=== PATIENT | male | born 1990 | race Caucasian/White ===

== ENCOUNTER 2017-06-28 04:29 | Inpatient (IN) ==
[2017-06-28] MEDS ORDERED: Naloxone 0.4 MG/ML INJ IVP PRN ×2 (06:31→07:50)
[2017-06-28] MEDS ORDERED: Ringers Solution, Lactated 1,000 ML IVC SCH (06:45)
--- NOTE | 2017-06-28 07:38 | Orthopedic Consult Note ---
Date of Encounter: 06/28/17 Time of Encounter: 07:33 Assessment and Plan (1) Finger infection Current Visit: Yes Status: Acute I did discuss the diagnosis in detail with the patient. From an orthopedic standpoint he has a right ring finger infection which could be an infection of the subcutaneous tissues versus a deeper flexor tenosynovitis. He also has a subcutaneous abscess localized to the right ulnar and volar forearm. My recommendation was for exploration and drainage of both areas which he is agreeable to. My recommendation is to proceed under local anesthetic and I feel that these can be performed at the bedside. We will plan on this for later today. We will keep the patient NPO however in case he requires a more involved operative debridement under a general anesthetic. In the mean time I recommend elevation. Regarding the posterior head lesion, I defer management to the primary team, though the lesion does not appear to require any debridement at this time. History of Present Illness HPI: Mr. Loo is a 26 year old male intravenous drug user transferred here from [facility]. He is currently admitted to the hospitalist. He was transferred late last night/early this morning due to a ring finger infection on the right. There is also concern for an ipsilateral forearm abscess and an abscess on the back. On my evaluation the patient is complaining of mild pain localized to the right ring finger that has been present for the last 3 days. He does feel that a thorn punctured the right ring finger and led to the abscess. He denies any injections in the right ring finger. He does have a small abscess along the ulnar aspect of the distal right forearm which he is not clear about the cause and denies any injections in this area. He denies any feelings of illness. He denies any other infections. He denies any numbness, tingling, or any other associated signs or symptoms he denies any modifying factors. Past Med Surg Social Fam HX - Past Medical History Medical history: asthma Psychiatric history: ADHD, bipolar - Past Surgical History Surgical History: no surgical history - Social History Smoking Status: Current every day smoker Packs per day: 1 Smokeless Tobacco Status: No Alcohol use: none Drug use: methamphetamine, IV Drug Use - Family History Mother Living Status: Still Living Hx Family Cardiac Disorders: Yes (htn) Medications and Allergies No Known Home Drugs 06/28/17 [History] 3 Allergy/AdvReac Type Severity Reaction Status Date / Time prednisone Allergy Hives Verified 06/28/17 06:44 All Systems Reviewed: Constitutional and musculoskeletal systems were reviewed and are negative unless otherwise stated in history of present illness. Physical Exam - Constitutional Exam: CONSTITUTIONAL -Vitals reviewed: Afebrile and vitals are stable. -The patient is well developed, well nourished, well groomed PSYCHIATRIC -Fully alert and oriented -Pleasant mood HEAD -There is a scabbed over lesion measuring about a centimeter in diameter over the posterior head region. Minimal tenderness and erythema. No fluctuance. Minimal induration. RIGHT UPPER EXTREMITY Inspection of the ring finger shows focal swelling to the proximal aspect over the P1 area. Mild tenderness to palpation and erythema in this region with a small area of drainage over the volar PIP joint. There is mild erythema along the ulnar aspect of the digit and the P1 area as well. No dorsal tenderness. No other tenderness noted about the hand. There is a small, 1-1/2 cm palpable subcutaneous abscess localized to the volar and ulnar aspect of the right distal forearm with minimal fluctuance. Full active and passive motion of the shoulder, elbow, and wrist he can grossly flex and extend the digits of the hand , including the ring finger with minimal discomfort though there is some limitation to motion related to the swelling. The patient can actively flex and extend all digits, extend the thumb, cross the index and long fingers, make an okay sign, and oppose the thumb. The fingertips are all grossly sensate and well-perfused, and the radial artery pulse is 2+. Diagnostic Imaging: X-rays of the right hand and forearm are pending Results - Labs Labs: WBC from [facility] is 13.2. All other labs normal. Consult Discharge Plan - Plan Referrals: NONE,PCP [Primary Care Provider] -
[2017-06-28 07:44] LABS: BUN/Creatinine Ratio 9 (6-26); Blood Urea Nitrogen 7 mg/dL (8-26); eGFR For African Americans > 60 (> 60); eGFR For Non-African Americans > 60 (> 60)
[2017-06-28] MEDS ORDERED: Ondansetron 4 MG/2 ML VIAL IVP PRN (07:50)
[2017-06-28] MEDS ORDERED: Acetaminophen 325 MG TABLET PO PRN (07:50)
[2017-06-28] MEDS ORDERED: Ibuprofen 400 MG TABLET PO PRN (07:50)
[2017-06-28] MEDS ORDERED: Vancomycin (wt based) 1,000 MG VIAL IVPB SCH (08:00)
--- NOTE | 2017-06-28 08:03 | Internal Med History&Physical ---
Date of Encounter: 06/28/17 Time of Encounter: 07:58 Assessment and Plan (1) Sepsis affecting skin Current visit: Yes Status: Acute Heart rate of 115 and white blood cell count of 13.2 Sepsis secondary to multiple abscesses, right forearm and right fourth finger Order cultures, continue IV vancomycin Nothing by mouth for possible surgical draining by Dr. Ingram IV fluids and Toradol for pain There is a possible early abscess in the occipital area, consider surgery consult if not improving, consider CT scan if worsening Omeprazole for GI prophylaxis and Lovenox for DVT prophylaxis. Patient will be admitted as inpatient, full code. Time spent on this admission 40 minutes. (2) Abscess Current visit: Yes Status: Acute Possible tooth abscess. Start Unasyn and follow up with a dentist as an outpatient, consider imaging (3) Tobacco abuse Current visit: Yes Status: Acute Smoking cessation counseling given for 5 minutes. Nicotine patch (4) IV drug abuse Current visit: Yes Status: Acute (5) Bipolar 1 disorder Current visit: Yes Status: Acute Internal Medicine - H&P: HPI Chief complaint: hand abscess Admitted From: Emergency Dept ([facility]) History of present illness: Mr. Loo is a 26 year old male with a PMHX of IVDA using methamphetamines, tobacco abuse, bipolar, ADHD, who was transferred form [facility] ER where he went complaining of more than 4 days of right forearm and pain over the 4th finger in the right hand. ER contacted Dr Gillis who accepeted the patient to be transferred. At [facility] he received 1 dose of IV vancomycin. No imaging was performed. Patient was evaluated by Dr. Ingram most likely will perform surgical draining of both areas. The patient had a heart rate of 115 and a white blood cell count of 13.2. Lactic acid was normal. He describes the pain as 7 out of 10 in intensity. He is somnolent and not very cooperative with the examination and history. Complains of a headache and some nausea. Also, he has been having toothaches and mentions that he has had a possible tooth abscess. Denies any major fevers, chest pain, shortness of breath. Denies injecting IV drugs in the affected areas. Has also had small abscess in the occipital area and not draining. Denies any other complaint. Past Med Surg Social Fam HX - Past Medical History Medical history: asthma, other (IV drug abuse with methamphetamines, according to [facility] note he has used marijuana in the past, history of tobacco abuse, bipolar disorder, ADHD) Psychiatric history: ADHD, bipolar - Past Surgical History Surgical History: no surgical history - Social History Smoking Status: Current every day smoker Packs per day: 1 Smokeless Tobacco Status: No Alcohol use: none Drug use: marijuana, methamphetamine, IV Drug Use - Family History Mother Living Status: Still Living Hx Family Cardiac Disorders: Yes (htn) - Additional Family History Additional family history: Mother with hypertension Internal Medicine - H&P: Meds No Known Home Drugs 06/28/17 [History] 3 Allergy/AdvReac Type Severity Reaction Status Date / Time prednisone Allergy Hives Verified 06/28/17 06:44 All Systems PM: A 10-system review of systems was performed and is negative for pertinent findings except as documented above in the HPI. Review of systems: no chest pain or SOB. other systems out of the ten reviewed are negative - Constitutional Vitals: Temp Pulse Resp BP Pulse Ox 97.5 F L 71 16 131/88 97 06/28/17 07:45 06/28/17 07:45 06/28/17 07:45 06/28/17 07:45 06/28/17 07:45 General appearance: Present: A&O X 3 - Head Head exam: Present: atraumatic, normocephalic - Eye Eye exam: Present: PERRL, conjuntiva pink, sclera anicteric Pupils: Present: PERRL - Neck Neck exam general surgery: Present: supple, trachea midline. Absent: lymphadenopathy - Respiratory Respiratory exam: Present: CTAB. Absent: accessory muscle use, rales, rhonchi, wheezes - Cardiovascular Cardiovascular exam: Present: RRR, +S1, +S2. Absent: diastolic murmur, gallop, rubs, systolic murmur - GI/Abdominal GI/Abdominal exam: Present: normal bowel sounds, soft, no peritoneal signs. Absent: distended, tenderness - Extremities Exam Extremities exam: Present: warm, radial pulses palpable and symmetrical. Absent : calf tenderness, cyanotic, pedal edema - Neurological Exam Neurological exam: Present: CN II-XII intact, oriented X3, no focal deficits. Absent: pronater drift, facial droop, speech deficit - Skin Skin exam: Present: dry. Absent: intact Additional comments: Large draining abscess over the internal area of the right fourth finger, right forearm abscess, erythematous and tender to touch Right mandibular gum inflamation. 1 cm induration in the occipital area Internal Med - H&P Results - Labs CBC & Chem 7: 06/28/17 07:22 Labs: BMP 06/28/17 07:22 BUN 7 L Creatinine 0.75 White blood cell count 13.2 hemoglobin 14.7 and platelets 308 sodium 139 potassium 4 chloride 100 CO2 33 BUN 7 creatinine 0.85 glucose 78 pro-calcitonin 0.06 No imaging studies performed
[2017-06-28] MEDS: Nicotine 21 MG PATCH.TD24 TD SCH (09:34)
[2017-06-28] MEDS: Ampicillin/Sulbactam 1,500 MG in 0.9 % Sodium Chloride Mini Bag 100 ML IVPB SCH ×2 (11:10→17:16)
[2017-06-28] MEDS ORDERED: Lidocaine/EPI 1:100k 1% 50 ML VIAL INFILT ONE (12:10)
[2017-06-28] MEDS ORDERED: Vancomycin 0 MG in D5% in Water 250 ML IVPB SCH (15:00)
[2017-06-28] MEDS: Ringers Solution, Lactated 1,000 ML IVC SCH (15:29)
[2017-06-28] MEDS: Ketorolac 30 MG/ML VIAL IVP PRN (17:19)
[2017-06-28] MEDS: Vancomycin 1,250 MG in D5% in Water 250 ML IVPB SCH (19:40)
[2017-06-29] MEDS: Ampicillin/Sulbactam 1,500 MG in 0.9 % Sodium Chloride Mini Bag 100 ML IVPB SCH ×4 (00:04→17:30)
[2017-06-29] MEDS: Ketorolac 30 MG/ML VIAL IVP PRN ×3 (00:11→19:09)
[2017-06-29 05:28] LABS: Basophils # 0.1 K/mcL (0.0-0.2); Basophils % 0.8 %; Eosinophils # 0.9 K/mcL (0.0-0.6); Eosinophils % 8.9 %; Hemoglobin 15.1 g/dL (12.9-16.9); Immature Granulocytes % 0.5 % (0-4); Lymphocytes # 3.8 K/mcL (0.6-4.6); Lymphocytes % 37.8 %; Mean Corpuscular HGB Conc 32.1 g/dL (31.6-35.5); Mean Corpuscular Hemoglobin 27.2 pg (28.0-33.3); Mean Corpuscular Volume 84.7 fL (83.0-100.0); Mean Platelet Volume 10.5 fL (9.4-12.4); Monocytes # 0.7 K/mcL (0.0-1.3); Monocytes % 6.9 %; Neutrophils # 4.5 K/mcL (1.6-8.9); Platelet Count 286 K/mcL (140-400); Red Blood Count 5.55 M/mcL (4.19-5.50); Red Cell Distribution Width 12.5 % (11.5-14.5); Segmented Neutrophils % 45.1 %
[2017-06-29] MEDS: *HR* Enoxaparin 40 MG/0.4 ML SYRINGE SQ SCH (05:31)
[2017-06-29 05:47] LABS: BUN/Creatinine Ratio 11 (6-26); Blood Urea Nitrogen 9 mg/dL (8-26); Calcium 9.6 mg/dL (8.6-10.8); Carbon Dioxide 28 mEq/L (19-29); Chloride 105 mEq/L (98-109); Glucose 97 mg/dL (70-99); Osmolality,Calculated 289 (280-300); Potassium 4.3 mEq/L (3.5-4.5); Sodium 140 mEq/L (136-145); eGFR For African Americans > 60 (> 60); eGFR For Non-African Americans > 60 (> 60)
[2017-06-29] MEDS: Vancomycin 1,250 MG in D5% in Water 250 ML IVPB SCH (06:28)
[2017-06-29] MEDS: Ringers Solution, Lactated 1,000 ML IVC SCH ×3 (06:29→15:33)
--- NOTE | 2017-06-29 08:20 | Internal Med Progress Note ---
Date of Encounter: 06/29/17 Time of Encounter: 08:10 - Assessment and plan (1) Sepsis affecting skin Current Visit: Yes Status: Acute Assessment and plan: Heart rate of 115 and white blood cell count of 13.2 Sepsis secondary to multiple abscesses, right forearm and right fourth finger status post I&D by Dr. Ingram Recommendations appreciated Order cultures, continue IV vancomycin day 2 Nothing by mouth for possible new surgical draining IV fluids and Toradol for pain There is a possible early abscess in the occipital area, consider surgery consult if not improving, consider CT scan if worsening (2) Abscess Current Visit: Yes Status: Acute Assessment and plan: Possible tooth abscess. Continue Unasyn day 2 and follow up with a dentist as an outpatient (3) Tobacco abuse Current Visit: Yes Status: Acute Assessment and plan: Nicotine patch (4) IV drug abuse Current Visit: Yes Status: Acute (5) Bipolar 1 disorder Current Visit: Yes Status: Acute - Subjective Interval history: has less pain on his right forearm and right 4th finger, no fever, denies chest pain or shortness of breath, small abscess in the occipital area has improved, no abdominal pain or dysuria - Constitutional Vitals: Temp Pulse Resp BP Pulse Ox 98.1 F 76 14 152/82 98 06/29/17 07:12 06/29/17 07:12 06/29/17 07:12 06/29/17 07:12 06/29/17 07:12 General appearance: Present: A&O X 3 Exam: - Head Head exam: Present: atraumatic, normocephalic - Eye Eye exam: Present: PERRL, conjuntiva pink, sclera anicteric Pupils: Present: PERRL - Neck Neck exam general surgery: Present: supple, trachea midline. Absent: lymphadenopathy - Respiratory Respiratory exam: Present: CTAB. Absent: accessory muscle use, rales, rhonchi, wheezes - Cardiovascular Cardiovascular exam: Present: RRR, +S1, +S2. Absent: diastolic murmur, gallop, rubs, systolic murmur - GI/Abdominal GI/Abdominal exam: Present: normal bowel sounds, soft, no peritoneal signs. Absent: distended, tenderness - Extremities Exam Extremities exam: Present: warm, radial pulses palpable and symmetrical. Absent : calf tenderness, cyanotic, pedal edema - Neurological Exam Neurological exam: Present: CN II-XII intact, oriented X3, no focal deficits. Absent: pronater drift, facial droop, speech deficit - Skin Skin exam: Present: dry. Absent: intact Additional comments: Large draining abscess over the internal area of the right fourth finger, right forearm abscess covered by dressing Right mandibular gum inflamation. 1 cm induration in the occipital area improving Internal Medicine: Result - Labs CBC & Chem 7: 06/29/17 05:21 06/29/17 05:21 Labs: Short CBC 06/29/17 Range/Units 05:21 WBC 9.9 (4.3-11.1) K/mcL Hgb 15.1 (12.9-16.9) g/dL Hct 47.0 (37.5-50.1) % Plt Count 286 (140-400) K/mcL Neutrophils # 4.5 (1.6-8.9) K/mcL BMP 06/29/17 05:21 Sodium 140 Potassium 4.3 Chloride 105 Carbon Dioxide 28 BUN 9 Creatinine 0.83 Glucose 97 Calcium 9.6 - Impressions Impressions Finger X-Ray 06/28/17 07:31 IMPRESSION: 1. Subcutaneous soft tissue edema of the ring finger without radiographic findings of osteomyelitis, however, MRI is more sensitive in detection of osteomyelitis as clinically indicated. Subchondral lucency of the 3rd metacarpal head may represent an osteochondral lesion, this could be better evaluated by MRI on a nonemergent basis as clinically indicated. D/ / 06/28/2017 08:52:38 Weston Henry MD / Karissa Ames Interpreting Provider: Weston Henry MD Forearm X-Ray 06/28/17 07:32 IMPRESSION: 1. No acute osseous abnormality identified of the right elbow. 2. Mild swelling without evidence of soft tissue emphysema. D/ / Logan Sims MD / Logan Sims MD Interpreting Provider: Logan Sims MD Consult Discharge Plan - Plan Referrals: NONE,PCP [Primary Care Provider] -
--- NOTE | 2017-06-29 11:24 | Orthopedics Progress Note ---
Date of Encounter: 06/29/17 Time of Encounter: 11:16 - Assessment and Plan (1) Finger infection Current Visit: Yes Status: Acute Subjective Interval history: S: Resting comfortably in bed. Patient notes improvement to the right ring finger and right distal forearm region. No new complaints. No numbness, tingling, or any other associated signs or symptoms. O: Afebrile and the vital signs are stable. Right forearm redness is improving and the packing is pulled without any purulent drainage. Inspection of the ring finger shows improvement of the redness. Moderate swelling over the P1 area. The packing is pulled without any significant drainage. The wound is irrigated and repacked lightly. Expected tenderness over the ring finger and distal forearm. He could grossly flex and extend the digits with motion limited due to swelling. The fingertips are all grossly sensate and well-perfused, and the radial artery pulse is 2+. Cultures from yesterday are pending A: Right ring finger and distal forearm abscess post bedside I&D and improving with broad-spectrum IV antibiotics P: Continue IV antibiotics per the primary team. Daily dressing and packing changes Motion exercises to reduce the risk of stiffness I will follow clinically with you No plans for surgical drainage at this point. Objective Vital signs: Vital Signs Temp Pulse Resp BP Pulse Ox 06/29/17 07:12 98.1 F 76 14 152/82 98 06/29/17 03:35 97.6 F 64 14 154/95 97 06/29/17 00:15 98.4 F 78 15 167/90 97 06/28/17 19:45 97.7 F 84 16 136/94 97 06/28/17 15:23 98 F 73 16 135/85 99 Intake and Output 06/28/17 06/29/17 06/29/17 23:59 07:59 15:59 Intake Total 1250 / 1250 450 / 450 Balance 1250 / 1250 450 / 450 Intake: IV Fluids 1100 / 1100 450 / 450 Lactated Ringers 1,000 ML @ 150 1000 / 1000 mls/hr IVC .[id number] MELANIE Rx#: [id number] Unasyn 1,500 mg In 0.9 % Sodium 100 / 100 200 / 200 Chloride (Mini-Bag +) 100 ML @ 200 mls/hr IVPB Q6HR MELANIE Rx#: [id number] Vancocin 1,250 MG In Dextrose 5 250 / 250 % 250 ML @ 166.67 mls/hr IVPB Q12H MELANIE Rx#:[id number] Oral 150 / 150 0 / 0 Other: Meal NPO # Voids 1 2 Weight 87.6 kg Blood Glucose* 121 Patient Weight 06/29/17 23:59 Weight 87.6 kg - Labs CBC & BMP: 06/29/17 05:21 06/29/17 05:21 Labs: Abnormal lab results RBC 5.55 M/mcL (4.19-5.50) H 06/29/17 05:21 MCH 27.2 pg (28.0-33.3) L 06/29/17 05:21 Eosinophils # 0.9 K/mcL (0.0-0.6) H 06/29/17 05:21 POC Glucose 121 (58-89) H 06/29/17 05:29 Consult Discharge Plan - Plan Referrals: NONE,PCP [Primary Care Provider] -
[2017-06-29] MEDS: Nicotine 21 MG PATCH.TD24 TD SCH (12:15)
[2017-06-29] MEDS: *HR* Morphine 2 MG/ML SYRINGE IVP PRN (17:30)
[2017-06-29] MEDS: Vancomycin 1,500 MG in D5% in Water 250 ML IVPB SCH (20:31)
[2017-06-30] MEDS: Ampicillin/Sulbactam 1,500 MG in 0.9 % Sodium Chloride Mini Bag 100 ML IVPB SCH ×4 (00:51→18:14)
[2017-06-30] MEDS: Ringers Solution, Lactated 1,000 ML IVC SCH ×2 (00:52→11:56)
[2017-06-30] MEDS: *HR* Enoxaparin 40 MG/0.4 ML SYRINGE SQ SCH ×2 (05:02→05:14)
[2017-06-30] MEDS: Ketorolac 30 MG/ML VIAL IVP PRN ×2 (05:02→20:19)
--- NOTE | 2017-06-30 08:29 | Orthopedics Progress Note ---
Date of Encounter: 06/30/17 Time of Encounter: 08:26 - Assessment and Plan (1) Finger infection Current Visit: Yes Status: Acute I did discuss the diagnosis in detail with the patient. From an orthopedic standpoint he has a right ring finger infection which could be an infection of the subcutaneous tissues versus a deeper flexor tenosynovitis. He also has a subcutaneous abscess localized to the right ulnar and volar forearm. My recommendation was for exploration and drainage of both areas which he is agreeable to. My recommendation is to proceed under local anesthetic and I feel that these can be performed at the bedside. We will plan on this for later today. We will keep the patient NPO however in case he requires a more involved operative debridement under a general anesthetic. In the mean time I recommend elevation. Regarding the posterior head lesion, I defer management to the primary team, though the lesion does not appear to require any debridement at this time. Subjective Interval history: S: Expected pain to the right ring finger which has improved. No new complaints. O: Afebrile and the vital signs are stable. The ring finger continues to improve with mild erythema at this point localized mainly on the volar side of the digit. Mild tenderness to palpation as expected over the I&D site which looks good. No grossly purulent drainage. The packing is changed and the wound base irrigated with peroxide. He could grossly flex and extend the ring finger with some limitation due to moderate swelling and pain inhibition. The patient can actively flex and extend all digits, extend the thumb, cross the index and long fingers, make an okay sign, and oppose the thumb. The fingertips are all grossly sensate and well-perfused , and the radial artery pulse is 2+. The ulnar aspect of the distal forearm continues to heal nicely without any purulent drainage. A new dressing was placed. Cultures growing Staphylococcus aureus A: Right ring finger and distal forearm abscess post bedside I&D and improving with broad-spectrum IV antibiotics P: Continue IV antibiotics per the primary team. Recommend at least 1 more day of IV antibiotics followed by at least 1 day of observation on oral antibiotics to make sure he continues to improve. Daily dressing and packing changes Motion exercises to reduce the risk of stiffness I will follow clinically with you Objective Vital signs: Vital Signs Temp Pulse Resp BP Pulse Ox 06/30/17 07:24 97.7 F 59 14 153/81 97 06/30/17 04:15 98.7 F 88 15 151/88 97 06/29/17 23:22 98.1 F 88 16 154/97 95 06/29/17 18:41 98.0 F 65 17 171/122 97 06/29/17 15:19 98.2 F 81 16 143/94 98 06/29/17 11:25 97.7 F 92 16 157/98 99 Intake and Output 06/29/17 06/30/17 06/30/17 23:59 07:59 15:59 Intake Total 1440 / 1440 100 / 100 Output Total 250 / 250 Balance 1190 / 1190 100 / 100 Intake: IV Fluids 1200 / 1200 100 / 100 Lactated Ringers 1,000 ML @ 150 1000 / 1000 mls/hr IVC .Q6H40M MELANIE Rx#: [id number] Unasyn 1,500 mg In 0.9 % Sodium 200 / 200 100 / 100 Chloride (Mini-Bag +) 100 ML @ 200 mls/hr IVPB Q6HR MELANIE Rx#: [id number] Oral 240 / 240 Output: Urine 250 / 250 Other: Meal Dinner Percent of Meal Consumed 90% - Labs CBC & BMP: 06/29/17 05:21 06/29/17 05:21 Labs: Abnormal lab results RBC 5.55 M/mcL (4.19-5.50) H 06/29/17 05:21 MCH 27.2 pg (28.0-33.3) L 06/29/17 05:21 Eosinophils # 0.9 K/mcL (0.0-0.6) H 06/29/17 05:21 POC Glucose 121 (58-89) H 06/29/17 05:29 Vancomycin Trough 6.4 mcg/mL (10-20) L 06/29/17 18:28 Consult Discharge Plan - Plan Referrals: NONE,PCP [Primary Care Provider] -
--- NOTE | 2017-06-30 08:52 | Internal Med Progress Note ---
Date of Encounter: 06/30/17 Time of Encounter: 08:50 - Assessment and plan (1) Sepsis affecting skin Current Visit: Yes Status: Acute Assessment and plan: Heart rate of 115 and white blood cell count of 13.2 Likely incefted with MRSA, sensitivity pending Sepsis secondary to multiple abscesses, right forearm and right fourth finger status post I&D by Dr. Ingram Recommendations appreciated Order cultures, continue IV vancomycin day 3 IV fluids and Toradol for pain There is a possible early abscess in the occipital area, consider surgery consult if not improving, consider CT scan if worsening (2) Abscess Current Visit: Yes Status: Acute Assessment and plan: Possible tooth abscess. Continue Unasyn day 3 and follow up with a dentist as an outpatient (3) Tobacco abuse Current Visit: Yes Status: Acute Assessment and plan: Nicotine patch (4) IV drug abuse Current Visit: Yes Status: Acute (5) Bipolar 1 disorder Current Visit: Yes Status: Acute - Subjective Interval history: Mentions thath he has less pain on his right forearm and right 4th finger, no fever, denies chest pain or shortness of breath, small abscess in the occipital area has improved, no abdominal pain or dysuria - Constitutional Vitals: Temp Pulse Resp BP Pulse Ox 97.7 F 59 14 153/81 97 06/30/17 07:24 06/30/17 07:24 06/30/17 07:24 06/30/17 07:24 06/30/17 07:24 General appearance: Present: A&O X 3 Exam: - Head Head exam: Present: atraumatic, normocephalic - Eye Eye exam: Present: PERRL, conjuntiva pink, sclera anicteric Pupils: Present: PERRL - Neck Neck exam general surgery: Present: supple, trachea midline. Absent: lymphadenopathy - Respiratory Respiratory exam: Present: CTAB. Absent: accessory muscle use, rales, rhonchi, wheezes - Cardiovascular Cardiovascular exam: Present: RRR, +S1, +S2. Absent: diastolic murmur, gallop, rubs, systolic murmur - GI/Abdominal GI/Abdominal exam: Present: normal bowel sounds, soft, no peritoneal signs. Absent: distended, tenderness - Extremities Exam Extremities exam: Present: warm, radial pulses palpable and symmetrical. Absent : calf tenderness, cyanotic, pedal edema - Neurological Exam Neurological exam: Present: CN II-XII intact, oriented X3, no focal deficits. Absent: pronater drift, facial droop, speech deficit - Skin Skin exam: Present: dry. Absent: intact Additional comments: Large draining abscess over the internal area of the right fourth finger, right forearm abscess covered by dressing Right mandibular gum inflamation. 1 cm induration in the occipital area improving Internal Medicine: Result - Labs CBC & Chem 7: 06/29/17 05:21 06/29/17 05:21 Consult Discharge Plan - Plan Referrals: NONE,PCP [Primary Care Provider] -
[2017-06-30] MEDS: Vancomycin 1,500 MG in D5% in Water 250 ML IVPB SCH ×2 (08:54→20:19)
[2017-06-30] MEDS: Nicotine 21 MG PATCH.TD24 TD SCH (08:55)
[2017-06-30] MEDS: *HR* Morphine 2 MG/ML SYRINGE IVP PRN (16:37)
[2017-07-01] MEDS: Ampicillin/Sulbactam 1,500 MG in 0.9 % Sodium Chloride Mini Bag 100 ML IVPB SCH ×2 (00:18→05:49)
[2017-07-01 00:32] VITALS: BP 115/98
[2017-07-01] MEDS: Ringers Solution, Lactated 1,000 ML IVC SCH (01:16)
[2017-07-01] MEDS: *HR* Enoxaparin 40 MG/0.4 ML SYRINGE SQ SCH (05:48)
[2017-07-01] MEDS: Ketorolac 30 MG/ML VIAL IVP PRN (06:02)
--- NOTE | 2017-07-01 07:49 | Discharge Summary ---
Date of Encounter: 07/01/17 Time of Encounter: 07:45 - Discharge Diagnosis (1) Sepsis affecting skin Priority: Primary Status: Acute Comments: Sepsis secondary to multiple abscesses/infected with MRSA, right forearm and right fourth finger status post I&D by Dr. Ingram (2) Abscess Priority: Primary Status: Acute (3) Tobacco abuse Priority: Secondary Status: Acute (4) IV drug abuse Priority: Secondary Status: Acute (5) Bipolar 1 disorder Priority: Secondary Status: Acute - Discharge Medications Prescriptions: Sulfamethoxazole/Trimeth DS [Bactrim DS] 1 each PO BID #14 tablet Tramadol HCl [Ultram] 50 mg PO TID PRN #20 tab PRN Reason: Pain Home Medications: Ibuprofen [Motrin] 400 mg PO Q6HR PRN tablet 07/01/17 [Rx] Sulfamethoxazole/Trimeth DS [Bactrim DS] 1 each PO BID #14 tablet 07/01/17 [Rx] Tramadol HCl [Ultram] 50 mg PO TID PRN #20 tab 07/01/17 [Rx] Allergies/Adverse Reactions: 3 Allergy/AdvReac Type Severity Reaction Status Date / Time prednisone Allergy Hives Verified 06/28/17 06:44 Date of admission: 06/28/17 06:31 Primary care physician: PCP NONE Consults: 06/28/17 06:35 Consult to Orthopedic Surgery [CONS] Routine Consulting Provider: [facility] Reason for Consult: right fourth finger abscess Call Completed: Yes - Patient Status Disposition: Home, Self-Care Condition: Good Overall status at discharge: patient is back to baseline - Discharge Instructions Follow Up With: NONE,PCP [Primary Care Provider] - Additional Instructions: Follow-up with primary care physician within the next 7 days. Continue Bactrim for 7 more days. Wound care per Dr. Ingram instructions. Quit smoking - Diet and Activity Activity: increase activity as tolerated Hospital course: Mr. Loo is a 26 year old male with a PMHX of IVDA using methamphetamines, tobacco abuse, bipolar, ADHD, who was transferred form [facility] ER where he went complaining of more than 4 days of right forearm and pain over the 4th finger in the right hand. ER contacted Dr Gillis who accepeted the patient to be transferred. At [facility] he received 1 dose of IV vancomycin. No imaging was performed. Patient was evaluated by Dr. Ingram and underwent surgical draining of both areas. The patient had a heart rate of 115 and a white blood cell count of 13.2. Lactic acid was normal. He described the pain as 7 out of 10 in intensity. Also, he has been having toothaches and mentions that he has had a possible tooth abscess. Denied injecting IV drugs in the affected areas. Has also had small abscess in the occipital area and not draining. Was continued on Vancomycin for 3 days, culture grew MRSA sensitive to Bactrim and Doxycycline, prefers to be discharged on Bactrim. Also was started on Unasyn for a tooth abscess. Time spent discussing smoking cessation with patient: 3 to 10 minutes - Time Spent with Patient Total time spent providing and/or coordinating discharge services: Greater than 30 minutes (40 min) - Constitutional Vitals: Temp Pulse Resp BP Pulse Ox 98.0 F 77 17 115/98 98 07/01/17 00:31 07/01/17 00:31 07/01/17 00:31 07/01/17 00:31 07/01/17 00:31 General appearance: Present: A&O X 3 Exam: - Head Head exam: Present: atraumatic, normocephalic - Eye Eye exam: Present: PERRL, conjuntiva pink, sclera anicteric Pupils: Present: PERRL - Neck Neck exam general surgery: Present: supple, trachea midline. Absent: lymphadenopathy - Respiratory Respiratory exam: Present: CTAB. Absent: accessory muscle use, rales, rhonchi, wheezes - Cardiovascular Cardiovascular exam: Present: RRR, +S1, +S2. Absent: diastolic murmur, gallop, rubs, systolic murmur - GI/Abdominal GI/Abdominal exam: Present: normal bowel sounds, soft, no peritoneal signs. Absent: distended, tenderness - Extremities Exam Extremities exam: Present: warm, radial pulses palpable and symmetrical. Absent : calf tenderness, cyanotic, pedal edema - Neurological Exam Neurological exam: Present: CN II-XII intact, oriented X3, no focal deficits. Absent: pronater drift, facial droop, speech deficit - Skin Skin exam: Present: dry. Absent: intact Additional comments: Large draining abscess over the internal area of the right fourth finger, right forearm abscess covered by dressing Right mandibular gum inflammation. 1 cm induration in the occipital area improved
[2017-07-01] MEDS: Sulfamethoxazole/Trimeth DS 1 EACH TABLET PO SCH ×2 (08:08→08:13)
[2017-07-01] MEDS: Vancomycin 1,500 MG in D5% in Water 250 ML IVPB SCH (08:08)
[2017-07-01] MEDS ORDERED: Aminoglycoside Consult 1 EACH MC ONE (11:27)
== END 2017-07-01 11:28 | disposition home or self-care (01) | DRG 710 ==
LOC: 3NENU → SUATTDRO 06:31
PROVIDERS: ADMIT Internal Medicine Hematology & Oncology; ATTEND Internal Medicine